=== PATIENT | male | born 1945 | race Caucasian/White ===

== ENCOUNTER 2017-06-27 10:35 | Outpatient (CLI) | payer MEDICARE ==
--- NOTE | 2017-06-27 11:40 | RAD ---
CHEST 2 VIWS: HISTORY: Dyspnea. COMPARISON: None. FINDINGS: There is a mass projecting over the left upper lobe of the chest. Mild tortuosity of the aorta. IMPRESSION: 1. Left upper lobe mass concerning for malignancy. CT recommended. 2. Code lung nodule. 3. Code T POS: [facility]
== END 2017-06-27 10:36 | disposition home or self-care (01) ==
LOC: RAD 10:35
PROVIDERS: ATTEND Internal Medicine Critical Care Medicine
DX: R06.00 Dyspnea, unspecified (principal); R91.8 Other nonspecific abnormal finding of lung field; R91.1 Solitary pulmonary nodule
CPT/HCPCS: 71046

== ENCOUNTER 2017-07-19 10:53 | Outpatient (CLI) | payer MEDICARE ==
--- NOTE | 2017-07-19 14:15 | PET ---
PET CT: HISTORY: A 72-year-old male with left upper lobe lung mass (R91.8). TECHNIQUE: PET scanning with CT attenuation correction was performed from the base of the brain to the proximal thighs following the intravenous administration of 12.5 mCi [id number] in the right antec ubital fossa. Imaging was performed after an uptake interval of 43 minutes. COMPARISON: None. CORRELATION: None. FINDINGS: There is increased FDG localization in the 4.3 cm left upper lobe lung mass with an SUV of 15. There is increased FDG localization in a 2.8 cm aortopulmonic window lymph node with an SUV of 11. No mike hypermetabolism is seen in the cervical, hilar, axillary, abdominopelvic, or inguinal lymph nodes. No hypermetabolic liver, adrenal, or skeletal lesions are seen. There is physiologic activity in the larynx, GI and tracts, and the visualized portions of the bra in and the heart. The CT scan used for attenuation correction demonstrates no evidence of pleural effusions or ascites. 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 POS: [facility]
== END 2017-07-19 10:54 | disposition home or self-care (01) ==
LOC: PET 10:53
PROVIDERS: ATTEND Internal Medicine Critical Care Medicine
DX: R91.8 Other nonspecific abnormal finding of lung field (principal); C34.12 Malignant neoplasm of upper lobe, left bronchus or lung; C77.1 Secondary and unspecified malignant neoplasm of intrathoracic lymph nodes
CPT/HCPCS: 78815; A9552

== ENCOUNTER 2017-08-09 08:35 | Day surgery (SDC) | payer MEDICARE ==
[2017-08-08 09:43] VITALS: BMI 23.0
[~2017-08-09 08:35] MED LIST: FLU VACC TS2017-18 (>65YR) 0.5 ML SYRINGE IM ONE; Prevnar 13-Val Conj/PF 0.5 ML SYRINGE IM ONE
[2017-08-09 09:01] LABS: #Basophils 0.1 thou/uL (0.0-0.2); #Eosinphils 0.2 thou/uL (0.0-0.7); #Monocytes 0.5 thou/uL (0.11-0.59); #Neutrophils 3.4 thou/uL (1.40-6.50); %Basophils 1.6 % (0.0-1.0); %Eosinophils 3.2 % (0.0-10.0); %Lymphocytes 32.2 % (21.0-51.0); %Monocytes 7.4 % (0.0-10.0); %Neutrophils 55.6 % (42.0-75.0); Hemoglobin 14.9 g/dL (14.0-18.0); Mean Corpuscular Hemoglobin 32.6 pg (27.0-31.0); Mean Corpuscular Volume 98.9 fl (80.0-94.0); Mean Platelet Volume 6.4 fL (7.4-10.4); Platelet Count 206 thou/uL (130-400); RBC Distribution Width 12.6 % (11.5-14.5); Red Blood Cell (RBC) Count 4.58 mill/uL (4.70-6.10)
[2017-08-09 09:07] LABS: Prothrombin Time 13.2 SEC (12.0-14.7)
[2017-08-09] MEDS ORDERED: Sodium Bicarbonate 2.4 MEQ/5 ML ONE (10:15)
[2017-08-09] MEDS ORDERED: Midazolam HCl 2 mg/2 ml Vial ONE (10:15)
--- NOTE | 2017-08-09 12:37 | RAD ---
SINGLE VIEW OF THE CHEST: Comparison: Chest CT 08-09-17 History: Left upper lobe lung mass biopsy. FINDINGS: Single view of the chest shows a normal sized cardiomediastinal silhouette. Airspace opacity is seen in the left upper lobe consistent with the patient's mass and/or hemorrhage around the mass. No pneum othorax is visualized. No significant pleural effusion is seen. The cardiomediastinal silhouette is n ormal in size. IMPRESSION: Status post left lung mass biopsy without evidence of pneumothorax. POS: OFF
[2017-08-09 12:48] VITALS: BP 164/80; TEMP 97.6
--- NOTE | 2017-08-09 13:29 | CT ---
CT GUIDED LEFT LUNG MASS BIOPSY: CONSCIOUS SEDATION: Two milligrams Versed, IV. FINDINGS: After explaining the procedure and answering all questions, limited CT imaging of the chest was perfo rmed. Anterior approach was planned. Sterile technique, buffered local anesthesia, CT guidance, and an anterior intercostal approach were used to carefully advance a 19 gauge needle to the level of th e large left upper lobe mass. Position was confirmed with CT. Six 20-gauge core biopsy specimens we re obtained and eventually submitted to pathology for evaluation. The needle was removed. Post proc edure imaging shows fluid throughout the left upper lobe adjacent to the mass, consistent with hemorr feliciano. No pneumothorax. The patient tolerated the procedure well and was returned to the holding area in good condition for f urther monitoring. IMPRESSION: Technically successful CT guided left upper lobe mass biopsy. Pathology is pending. POS: [facility]
--- NOTE | 2017-08-09 14:01 | RAD ---
CHEST ONE VIEW: History: Lung mass. Biopsy. FINDINGS: Left upper lobe mass and adjacent parenchymal opacity are stable. No evidence of pneumothorax. IMPRESSION: Status post left upper lobe lung mass biopsy. No evidence of pneumothorax. Patient is doing well clin ically and will be dismissed. POS: [facility]
== END 2017-08-09 13:45 | disposition home or self-care (01) ==
LOC: CT 08:35
PROVIDERS: ATTEND Internal Medicine Critical Care Medicine
PROC: 0BDG4ZX Extraction of Left Upper Lung Lobe, Percutaneous Endoscopic Approach, Diagnostic (ICD-10-PCS; principal; 2017-08-09)
DX: R91.8 Other nonspecific abnormal finding of lung field (principal); J44.9 Chronic obstructive pulmonary disease, unspecified; I73.9 Peripheral vascular disease, unspecified; F17.210 Nicotine dependence, cigarettes, uncomplicated; Z86.73 Personal history of transient ischemic attack (TIA), and cerebral infarction without residual deficits; Z79.82 Long term (current) use of aspirin; Z79.899 Other long term (current) drug therapy
CPT/HCPCS: 32405; 36415; 71045; 77012; 85025; 85610; 85730; 88305; 88313; 94640; 99152; 99153; J2250; J7620

== ENCOUNTER 2017-10-09 17:26 | Outpatient (CLI) | payer MEDICARE ==
[2017-10-09 17:48] LABS: Hemoglobin 14.5 g/dL (14.0-18.0); Mean Corpuscular HGB CONC 35.6 g/dL (32.0-36.0); Mean Corpuscular Volume 95.5 fl (80.0-94.0); Mean Platelet Volume 6.5 fL (7.4-10.4); Platelet Count 209 thou/uL (130-400); RBC Distribution Width 12.3 % (11.5-14.5); Red Blood Cell (RBC) Count 4.26 mill/uL (4.70-6.10); White Blood Cell (WBC) Count 7.1 thou/uL (4.8-10.8)
[2017-10-09 17:58] LABS: INR-International Normal Ratio 1.1; PTT 34.3 SEC (22.9-36.1); Prothrombin Time 14.2 SEC (12.0-14.7)
[2017-10-09 18:07] LABS: ALT (SGPT) 8 U/L (8-55); AST (SGOT) 11 U/L (5-34); Albumin 3.9 g/dL (3.4-4.8); Alkaline Phosphatase 101 U/L (40-150); Anion Gap 13 mmol/L (10-20); BUN (Urea Nitrogen) 11 mg/dL (8.4-25.7); Bilirubin, Total 0.3 mg/dL (0.2-1.2); Calc. Creatinine Clearance 0 mL/min (70-130); Calcium 8.8 mg/dL (7.8-10.44); Carbon Dioxide 21 mmol/L (23-31); Chloride 108 mmol/L (98-107); Estimated GFR-MDRD 50; Globulin 2.7 g/dL (2.4-3.5); Glucose 94 mg/dL (83-110); Potassium 4.1 mmol/L (3.5-5.1); Protein, Total 6.6 g/dL (5.8-8.1); Sodium 138 mmol/L (136-145)
== END 2017-10-09 17:27 | disposition home or self-care (01) ==
LOC: LABBT 17:26
PROVIDERS: ATTEND Internal Medicine Cardiovascular Disease
DX: Z01.818 Encounter for other preprocedural examination (principal); I25.119 Atherosclerotic heart disease of native coronary artery with unspecified angina pectoris
CPT/HCPCS: 80053; 85027; 85610; 85730; 93005; 93010

== ENCOUNTER 2017-10-11 05:58 | Day surgery (SDC) | payer MEDICARE ==
[2017-10-09 17:41] VITALS: BMI 23.7
[2017-10-11 07:08] LABS: Cardiac Risk 4.1 (Less than 4.5)
[2017-10-11] MEDS ORDERED: Lidocaine 1% (PF) 30 ML VIAL ONE (07:26)
[2017-10-11] MEDS ORDERED: Lidocaine 1% w/Epinephrine 1:200K 30 ML VIAL ONE (07:26)
[2017-10-11] MEDS ORDERED: Verapamil 5 MG/2 ML VIAL ONE ×2 (08:50→08:51)
[2017-10-11] MEDS ORDERED: Nitroglycerin 100MG/250ML BOT 250 ML ONE (08:50)
[2017-10-11] MEDS ORDERED: Heparin 10,000 UNITS/1 ML VIAL ONE (08:51)
[2017-10-11] MEDS ORDERED: Fentanyl 100 MCG/2 ML VIAL ONE (08:53)
[2017-10-11] MEDS ORDERED: Midazolam HCl 2 mg/2 ml Vial ONE (08:53)
[2017-10-11] MEDS ORDERED: Iopamidol 370 76% 100 ML VIAL ONE (11:01)
[2017-10-11] MEDS ORDERED: traMADol HCl 50 MG TAB ONE (11:11)
== END 2017-10-11 12:21 | disposition home or self-care (01) ==
LOC: CCL 05:58
PROVIDERS: ATTEND Internal Medicine Cardiovascular Disease
PROC: 4A023N7 Measurement of Cardiac Sampling and Pressure, Left Heart, Percutaneous Approach (ICD-10-PCS; principal; 2017-10-11)
DX: I25.10 Atherosclerotic heart disease of native coronary artery without angina pectoris (principal); F17.210 Nicotine dependence, cigarettes, uncomplicated; J44.9 Chronic obstructive pulmonary disease, unspecified; C34.92 Malignant neoplasm of unspecified part of left bronchus or lung; Z98.890 Other specified postprocedural states; Z86.73 Personal history of transient ischemic attack (TIA), and cerebral infarction without residual deficits
CPT/HCPCS: 80061; 93458; C1769; 99152; J1644; J2001; J2250; J3010; J7620